=== PATIENT | female | born 1975 | race Caucasian/White ===

== ENCOUNTER 2017-12-23 11:15 | Emergency (ER) | payer MEDICARE, OTHER ==
[2017-12-23 11:34] VITALS: BP 130/80; PULSE 85; RESP 18; TEMP 98.5
--- NOTE | 2017-12-23 12:10 | XR ---
EXAMINATION TYPE: XR facial bones 3 views complete, XR foot complete 3 views LT, XR ankle complete 3 views LT DATE OF EXAM: 12/23/2017 COMPARISON: NONE HISTORY: 41-year-old female with fall, face first, laceration and pain to the nose. Additional ankle and foot pain after fall. FINDINGS: Facial bones: The orbits appear symmetrical. Nasal septum relatively midline. No depressed nasal bone fracture seen . Maxillary spine also appears intact. There is some asymmetric density overlying the left maxillary sinus. The remaining paranasal sinuses appear pneumatized. Patient is partially edentulous. Left ankle: Plate and screw fixation of the distal fibula appears uncomplicated. No acute fracture, subluxation, or dislocation seen. Mild degenerative spurring along the posterior tibiotalar joint. Subtalar joint is aligned. Left foot: There is a nondisplaced transverse fracture at the base of the fifth metatarsal. Fracture extends int o the middle third aspect of the TMT joint. No additional acute fracture or dislocation seen. There i s mild degenerative change at the first MTP joint and a type II accessory navicular noted. COMBINED IMPRESSION: 1. Facial bones: No depressed nasal bone fracture identified. Some density projecting over the left m axillary sinus suggests chronic sinus disease. 2. Ankle: Uncomplicated appearance to the previous plate and screw fixation of the distal fibula. No acute osseous abnormality seen. 3. Left foot: Nondisplaced transverse fracture base of the fifth metatarsal. First MTP joint OA.
--- NOTE | 2017-12-23 13:32 | ED ---
Fall HPI - General Chief Complaint: Fall Stated Complaint: FALL, LEFT FOOT INJURY, FACIAL INJURY Time Seen by Provider: 12/23/17 12:27 Source: patient, RN notes reviewed Mode of arrival: wheelchair - History of Present Illness Initial Comments: This is a 41-year-old female who presents to the emergency department with chief complaint of fall. Patient states that she was walking across the pavement at approximately 11 AM this morning. 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 Patient states that she hit her nose and injured her right knee as well as her left ankle and foot. Patient states that she has a small abrasion on her right knee but is not concerned about it as her knee is not painful. She does complain of left foot pain and states that she has had left ankle surgery performed by Dr. Grajeda in the past. She denies any other injuries or trauma. She denies any head or neck pain. Denies fever, chills, chest pain, shortness of breath, abdominal pain , nausea or vomiting, constipation or diarrhea, dysuria or hematuria, numbness or tingling, headache or vision changes. - Related Data Home Medications Medication Instructions Recorded Confirmed Levothyroxine Sodium [Synthroid] 125 mcg PO DAILY 03/23/16 12/23/17 valACYclovir HCL [Valacyclovir] 1,000 mg PO DAILY 12/23/17 12/23/17 Previous Rx's Medication Instructions Recorded Ibuprofen 600 mg PO Q6HR #20 tablet 12/23/17 Allergies Allergy/AdvReac Type Severity Reaction Status Date / Time prochlorperazine Allergy Dystonic Verified 12/23/17 12:26 [From Compazine] Reaction prochlorperazine edisylate Allergy Dystonic Verified 12/23/17 12:26 [From Compazine] Reaction prochlorperazine maleate Allergy Dystonic Verified 12/23/17 12:26 [From Compazine] Reaction Review of Systems ROS Statement: Those systems with pertinent positive or pertinent negative responses have been documented in the HPI. ROS Other: All systems not noted in ROS Statement are negative. Past Medical History Additional Past Medical History / Comment(s): Back pain, History of Any Multi-Drug Resistant Organisms: None Reported Past Surgical History: Orthopedic Surgery, Tonsillectomy, Tubal Ligation Additional Past Surgical History / Comment(s): Lumbar fusion L4-5; Bilateral ankle surgery Past Psychological History: Anxiety Smoking Status: Never smoker Past Alcohol Use History: None Reported Past Drug Use History: None Reported General Exam - General Exam Comments Initial Comments: General: Awake and alert, well-developed; in no apparent distress. HEENT: Head atraumatic, normocephalic. Small superficial abrasion at bridge of nose. Bleeding is controlled. No evidence of septal hematoma. Dried blood at bilateral nares. Pupils are equal, round and reactive to light. Extraocular movements intact. Oropharynx moist without erythema or exudate. Neck: Supple. Normal ROM. Cardiovascular: Regular rate and rhythm. No murmurs, rubs or gallops. Chest symmetrical. Respiratory: Lungs clear to auscultation bilaterally. No wheezes, rales or rhonchi. Normal respiratory effort with no use of accessory muscles. Musculoskeletal: Normal ROM and no tenderness of left ankle. Patient does have limited range of motion of her left toes due to pain. There is swelling and tenderness noted at the proximal fifth metatarsal. Sensation is intact. Pedal pulses are 2+ equal and palpable bilaterally. Skin: Banks, warm and dry without rashes. Superficial abrasion with controlled bleeding right knee. Neurological: Alert and oriented x3. CN II-XII grossly intact. Speech is fluent and answers are appropriate. No focal neuro deficits. Psychiatric: Normal mood and affect. No overt signs of depression or anxiety noted. Limitations: no limitations Course Vital Signs 12/23/17 11:31 Temperature 98.5 F Pulse Rate 85 Respiratory 18 Rate Blood Pressure 130/80 O2 Sat by Pulse 98 Oximetry Medical Decision Making - Medical Decision Making This is a 41-year-old female who presents to the emergency department with chief complaint of fall. Patient complained of falling face first. Facial x- rays revealed no evidence for acute nasal fractures. Patient also complained of left ankle and left foot pain. Left ankle x-ray revealed no acute abnormalities. However, left foot x-ray revealed a nondisplaced transverse fracture at the base of the fifth metatarsal. An Juan bandage and postop shoe were placed. Patient is to follow-up with orthopedics. She states that she would like to follow-up with Dr. Grajeda. Patient will receive a prescription for ibuprofen 600s. She declines any other pain medications. She is in no acute distress and will be discharged home at this time. All questions answered. - Radiology Data Radiology results: report reviewed X-ray facial bones impression: No depressed nasal bone fracture identified. Some density projecting over the left maxillary sinus suggest chronic sinus disease. X-ray left ankle impression: Uncomplicated appearance of the previous plate and screw fixation of the distal fibula. No acute osseous abnormality seen. X-ray left foot impression: Nondisplaced transverse fracture base of the fifth metatarsal. First MTP joint osteoarthritis. Disposition Clinical Impression: Nondisplaced fracture of fifth left metatarsal bone Disposition: HOME SELF-CARE Condition: Good Instructions: Foot Fracture in Adults (ED) Additional Instructions: Please follow-up with Dr. Grajeda, orthopedics within 1-2 days. Please limit weightbearing on the left foot. Please take medications as prescribed. Please follow up with primary care provider within 1-2 days. Return to emergency department if symptoms should worsen or any concerns arise. Prescriptions: Ibuprofen 600 mg PO Q6HR #20 tablet Referrals: Karine Parker MD [Primary Care Provider] - 1-2 days Cuauhtemoc Grajeda MD [STAFF PHYSICIAN] - 1-2 days Time of Disposition: 13:42
== END 2017-12-23 14:11 | disposition home or self-care (01) ==
LOC: EC 11:15
DX: S92.355A Nondisplaced fracture of fifth metatarsal bone, left foot, initial encounter for closed fracture (principal); S00.31XA Abrasion of nose, initial encounter; S80.211A Abrasion, right knee, initial encounter; M19.072 Primary osteoarthritis, left ankle and foot; J34.89 Other specified disorders of nose and nasal sinuses; Z79.899 Other long term (current) drug therapy; Z88.8 Allergy status to other drugs, medicaments and biological substances; Z98.890 Other specified postprocedural states; W01.198A Fall on same level from slipping, tripping and stumbling with subsequent striking against other object, initial encounter; Y93.01 Activity, walking, marching and hiking; Y92.480 Sidewalk as the place of occurrence of the external cause
CPT/HCPCS: 70150; 99283

== ENCOUNTER → 2018-01-18 | Outpatient (CLI) | payer MEDICARE, OTHER ==
[2018-01-18 09:42] LABS: Basophils % (A) 0 %; Eosinophils # (A) 0.1 k/uL (0-0.7); Eosinophils % (A) 2 %; HCT 38.7 % (34.0-46.0); HGB 13.2 gm/dL (11.4-16.0); Lymphocytes # (A) 1.4 k/uL (1.0-4.8); Lymphocytes % (A) 31 %; MCH 30.5 pg (25.0-35.0); MCV 89.7 fL (80.0-100.0); Monocytes # (A) 0.2 k/uL (0-1.0); Monocytes % (A) 5 %; Neutrophils # (A) 2.8 k/uL (1.3-7.7); Neutrophils % (A) 60 %; Platelet Count 223 k/uL (150-450); RBC 4.32 m/uL (3.80-5.40); RDW 12.4 % (11.5-15.5); WBC 4.6 k/uL (3.8-10.6)
[2018-01-18 10:12] LABS: Albumin 4.3 g/dL (3.5-5.0); Bilirubin, Delta 0.3 mg/dL (0.0-0.2); Bilirubin,Unconjugated 0.3 mg/dL (0.0-1.1); Total Bilirubin 0.6 mg/dL (0.2-1.3); Total Protein 7.5 g/dL (6.3-8.2)
[2018-01-20 15:25] LABS: HCV Quant Log 4.41 (<1.08)
== END | disposition home or self-care (01) ==
LOC: LABWHC1 09:15
PROVIDERS: ATTEND Physician Assistant
DX: B18.2 Chronic viral hepatitis C (principal)
CPT/HCPCS: 36415; 80076; 85025; 87522

== ENCOUNTER → 2018-05-15 | Outpatient (CLI) | payer MEDICARE, OTHER ==
[2018-05-15 14:31] LABS: Basophils % (A) 0 %; Eosinophils # (A) 0.1 k/uL (0-0.7); Eosinophils % (A) 1 %; HCT 39.3 % (34.0-46.0); HGB 13.3 gm/dL (11.4-16.0); Lymphocytes # (A) 1.9 k/uL (1.0-4.8); Lymphocytes % (A) 27 %; MCHC 33.9 g/dL (31.0-37.0); MCV 91.5 fL (80.0-100.0); Mean Platelet Volume 6.6; Monocytes # (A) 0.4 k/uL (0-1.0); Monocytes % (A) 5 %; Neutrophils # (A) 4.6 k/uL (1.3-7.7); Neutrophils % (A) 66 %; Platelet Count 278 k/uL (150-450); RBC 4.29 m/uL (3.80-5.40); RDW 12.6 % (11.5-15.5)
[2018-05-15 14:40] LABS: Albumin 4.2 g/dL (3.5-5.0); Bilirubin, Delta 0.3 mg/dL (0.0-0.2); Bilirubin,Unconjugated 0.2 mg/dL (0.0-1.1); Total Bilirubin 0.5 mg/dL (0.2-1.3); Total Protein 7.3 g/dL (6.3-8.2)
[2018-05-17 15:19] LABS: Hepatits C Virus RNA Not detected (Not detected); Hepatits C Virus RNA, Quant <12 IU/mL (<12); LOG HCV IU/mL <1.08 (<1.08)
== END | disposition home or self-care (01) ==
LOC: LABWHC1 13:47
PROVIDERS: ATTEND Physician Assistant
DX: B18.2 Chronic viral hepatitis C (principal)
CPT/HCPCS: 36415; 80076; 85025; 87522

== ENCOUNTER 2018-06-15 08:15 | Emergency (ER) | payer MEDICARE, OTHER ==
[2018-06-15 08:19] VITALS: BP 103/77; PULSE 76; RESP 16; TEMP 98.6
--- NOTE | 2018-06-15 08:31 | ED ---
ENT HPI - General Chief complaint: ENT Stated complaint: SORE THROAT Time Seen by Provider: 06/15/18 08:20 Source: patient, RN notes reviewed, old records reviewed Mode of arrival: ambulatory Limitations: no limitations - History of Present Illness Initial comments: 5 is a 42-year-old female presents emergency times a day chief complaint 2 days of sore throat. Patient reports she has a history of strep throat, she was told she was acutely her. Patient reports that she woke up with a very sore throat. Patient reports that she is exposed the public at all times. She works with homeless. Patient states that she's had no ALLERGIES who any antibiotics. Patient does report she's had a mild cough. Patient states that she has had no nasal drainage or ear congestion. Patient reports she also has a mild headache today.Patient denies any recent fever, chills, shortness of breath, chest pain, back pain, abdominal pain, nausea vomiting, numbness or tingling, dysuria or hematuria, constipation or diarrhea,or visual changes, or any other current symptoms - Related Data Home Medications Medication Instructions Recorded Confirmed Levothyroxine Sodium [Synthroid] 125 mcg PO DAILY 03/23/16 12/23/17 valACYclovir HCL [Valacyclovir] 1,000 mg PO DAILY 12/23/17 12/23/17 Multivitamins, Thera [Multivitamin 1 tab PO DAILY 06/15/18 06/15/18 (formulary)] Previous Rx's Medication Instructions Recorded Azithromycin [Zithromax Z-pack] 250 mg PO DIRECTED #6 tab 06/15/18 Allergies Allergy/AdvReac Type Severity Reaction Status Date / Time prochlorperazine Allergy Dystonic Verified 06/15/18 08:58 [From Compazine] Reaction prochlorperazine edisylate Allergy Dystonic Verified 06/15/18 08:58 [From Compazine] Reaction prochlorperazine maleate Allergy Dystonic Verified 06/15/18 08:58 [From Compazine] Reaction Review of Systems ROS Statement: Those systems with pertinent positive or pertinent negative responses have been documented in the HPI. ROS Other: All systems not noted in ROS Statement are negative. Past Medical History Additional Past Medical History / Comment(s): Back pain, History of Any Multi-Drug Resistant Organisms: None Reported Past Surgical History: Orthopedic Surgery, Tonsillectomy, Tubal Ligation Additional Past Surgical History / Comment(s): Lumbar fusion L4-5; Bilateral ankle surgery Past Psychological History: No Psychological Hx Reported Smoking Status: Never smoker Past Alcohol Use History: None Reported Past Drug Use History: None Reported General Exam - General Exam Comments Initial Comments: 42-year-old female. Alert and oriented. No significant distress. Limitations: no limitations General appearance: alert, in no apparent distress Head exam: Present: atraumatic, normocephalic, normal inspection Eye exam: Present: normal appearance, PERRL, EOMI. Absent: scleral icterus, conjunctival injection, periorbital swelling ENT exam: Present: mucous membranes moist. Absent: normal exam, normal oropharynx (Patient is red oropharynx.) Neck exam: Present: normal inspection, full ROM, lymphadenopathy (Patient has some tender anterior cervical lymphadenopathy.). Absent: tenderness, meningismus Respiratory exam: Present: normal lung sounds bilaterally. Absent: respiratory distress, wheezes, rales, rhonchi, stridor Cardiovascular Exam: Present: regular rate, normal rhythm, normal heart sounds. Absent: systolic murmur, diastolic murmur, rubs, gallop, clicks GI/Abdominal exam: Present: soft, normal bowel sounds. Absent: distended, tenderness, guarding, rebound, rigid Extremities exam: Present: normal inspection, full ROM, normal capillary refill. Absent: tenderness, pedal edema, joint swelling, calf tenderness Back exam: Present: normal inspection Neurological exam: Present: alert, oriented X3, CN II-XII intact Psychiatric exam: Present: normal affect, normal mood Skin exam: Present: warm, dry, intact, normal color. Absent: rash Course Vital Signs 06/15/18 08:15 Temperature 98.6 F Pulse Rate 76 Respiratory 16 Rate Blood Pressure 103/77 O2 Sat by Pulse 96 Oximetry Medical Decision Making - Medical Decision Making 42-year-old female presents with 1 day of sore throat. She does report a mild cough. Patient does have quite erythematous T oropharynx. No significant x- rays at this time. Did obtain a rapid strep. This was negative for strep. However with his presentation of the oropharynx we'll start the Patient on azithromycin. Given a Z-Jeffrey. I discussed the CT follow-up and culture pending. Patient agrees to plan will comply. Return parameters were discussed. - Lab Data Lab Results 06/15/18 Range/Units 08:30 Group A Strep Rapid Negative (Negative) Disposition Clinical Impression: Pharyngitis Disposition: HOME SELF-CARE Condition: Good Instructions: Pharyngitis (ED) Additional Instructions: Advised to rest, remain hydrated. Take [id number] medication just cough drops to help with the throat. Patient should finish the medication as prescribed. Also recommended picking up a decongestant medication such as Mucinex. Return to emergency department if any alarming signs or symptoms occur. Prescriptions: Azithromycin [Zithromax Z-pack] 250 mg PO DIRECTED #6 tab Is patient prescribed a controlled substance at d/c from ED?: No Referrals: Karine Parker MD [Primary Care Provider] - 1-2 days Time of Disposition: 09:02
== END 2018-06-15 09:11 | disposition home or self-care (01) ==
LOC: EC 08:15
DX: J02.9 Acute pharyngitis, unspecified (principal); Z90.89 Acquired absence of other organs; Z79.899 Other long term (current) drug therapy; Z88.8 Allergy status to other drugs, medicaments and biological substances
CPT/HCPCS: 87081; 87430; 99283

== ENCOUNTER → 2018-09-18 | Outpatient (CLI) | payer MEDICARE ==
[2018-09-18 17:08] LABS: Basophils % (A) 0 %; Eosinophils # (A) 0.1 k/uL (0-0.7); Eosinophils % (A) 1 %; HCT 38.6 % (34.0-46.0); Lymphocytes # (A) 2.6 k/uL (1.0-4.8); Lymphocytes % (A) 26 %; MCH 30.9 pg (25.0-35.0); MCHC 33.7 g/dL (31.0-37.0); MCV 91.7 fL (80.0-100.0); Mean Platelet Volume 6.7; Monocytes # (A) 0.5 k/uL (0-1.0); Monocytes % (A) 5 %; Neutrophils # (A) 6.6 k/uL (1.3-7.7); Neutrophils % (A) 67 %; Platelet Count 278 k/uL (150-450); RBC 4.21 m/uL (3.80-5.40); RDW 12.5 % (11.5-15.5); WBC 9.9 k/uL (3.8-10.6)
[2018-09-19 08:25] LABS: ALT 17 U/L (8-44); AST 28 U/L (13-35); Alkaline Phosphatase 71 U/L (41-126); Bilirubin, Conjugated <0.20 mg/dL (0.20-0.40); Globulin 2.5 g/dL (2.1-3.7); Total Bilirubin 0.3 mg/dL (0.3-1.2)
[2018-09-19 13:36] LABS: Hepatits C Virus RNA Not detected (Not detected); Hepatits C Virus RNA, Quant <12 IU/mL (<12); LOG HCV IU/mL <1.08 (<1.08)
== END | disposition home or self-care (01) ==
LOC: LABWHC1 16:25
PROVIDERS: ATTEND Physician Assistant
DX: B18.2 Chronic viral hepatitis C (principal)
CPT/HCPCS: 36415; 80076; 85025; 87522

== ENCOUNTER 2019-02-12 04:25 | Emergency (ER) | payer MEDICARE, OTHER ==
[2019-02-12 04:52] VITALS: TEMP 98.5
--- NOTE | 2019-02-12 05:57 | ED ---
ENT HPI - General Chief complaint: ENT Stated complaint: Sore throat Time Seen by Provider: 02/12/19 05:29 Source: patient Mode of arrival: ambulatory - History of Present Illness MD complaint: sore throat Onset/Timin -: days(s) Location: throat Severity: moderate Consistency: constant Improves with: none Worsens with: swallowing Associated Symptoms: cough - Related Data Home Medications Medication Instructions Recorded Confirmed Levothyroxine Sodium [Synthroid] 125 mcg PO DAILY 03/23/16 06/15/18 valACYclovir HCL [Valacyclovir] 1,000 mg PO DAILY 12/23/17 06/15/18 Multivitamins, Thera [Multivitamin 1 tab PO DAILY 06/15/18 06/15/18 (formulary)] Previous Rx's Medication Instructions Recorded Azithromycin [Zithromax Z-pack] 250 mg PO DIRECTED #6 tab 06/15/18 Benzonatate [Tessalon Perles] 100 mg PO TID PRN #30 capsule 02/12/19 Allergies Allergy/AdvReac Type Severity Reaction Status Date / Time prochlorperazine Allergy Dystonic Verified 02/12/19 04:52 [From Compazine] Reaction prochlorperazine edisylate Allergy Dystonic Verified 02/12/19 04:52 [From Compazine] Reaction prochlorperazine maleate Allergy Dystonic Verified 02/12/19 04:52 [From Compazine] Reaction Review of Systems ROS Statement: Those systems with pertinent positive or pertinent negative responses have been documented in the HPI. ROS Other: All systems not noted in ROS Statement are negative. Constitutional: Reports: fever. Denies: chills ENT: Reports: throat pain. Denies: ear pain Respiratory: Reports: cough Gastrointestinal: Denies: abdominal pain, nausea, vomiting Musculoskeletal: Denies: back pain Skin: Denies: rash Neurological: Denies: headache, weakness Past Medical History Additional Past Medical History / Comment(s): Back pain, History of Any Multi-Drug Resistant Organisms: None Reported Past Surgical History: Orthopedic Surgery, Tonsillectomy, Tubal Ligation Additional Past Surgical History / Comment(s): Lumbar fusion L4-5; Bilateral ankle surgery Past Psychological History: No Psychological Hx Reported Smoking Status: Never smoker Past Alcohol Use History: None Reported Past Drug Use History: None Reported General Exam General appearance: alert, in no apparent distress Head exam: Present: atraumatic, normocephalic Eye exam: Present: normal appearance. Absent: scleral icterus, conjunctival injection ENT exam: Present: mucous membranes moist, other (Cobblestoning of the pharynx. The uvula is midline without edema. No evidence of peritonsillar abscess.). Absent: normal oropharynx Neck exam: Present: normal inspection, full ROM. Absent: meningismus, lymphadenopathy Respiratory exam: Present: normal lung sounds bilaterally. Absent: respiratory distress, wheezes, rales, rhonchi, stridor Cardiovascular Exam: Present: regular rate, normal rhythm, normal heart sounds. Absent: systolic murmur, diastolic murmur, rubs, gallop Extremities exam: Present: normal inspection, normal capillary refill Skin exam: Present: warm, dry, intact, normal color. Absent: rash Course Vital Signs 02/12/19 02/12/19 04:49 07:48 Temperature 98.5 F 98.5 F Pulse Rate 79 78 Respiratory 16 18 Rate Blood Pressure 110/78 99/71 O2 Sat by Pulse 95 98 Oximetry Medical Decision Making - Lab Data Lab Results 02/12/19 Range/Units 05:28 Influenza Type A RNA Not Detected (Not Detectd) Influenza Type B (PCR) Not Detected (Not Detectd) Group A Strep Rapid Negative (Negative) Disposition Clinical Impression: Upper respiratory infection Disposition: HOME SELF-CARE Condition: Good Instructions (If sedation given, give patient instructions): Upper Respiratory Infection (ED) Prescriptions: Benzonatate [Tessalon Perles] 100 mg PO TID PRN #30 capsule PRN Reason: Cough Is patient prescribed a controlled substance at d/c from ED?: No Referrals: Karine Parker MD [Primary Care Provider] - 1-2 days
--- NOTE | 2019-02-12 06:06 | XR ---
EXAM: XR Chest, 2 Views CLINICAL HISTORY: ITS.REASON XR Reason: cough TECHNIQUE: Frontal and lateral views of the chest. COMPARISON: 03/21/13 chest x-ray FINDINGS: Lungs: No consolidation or mass. Pleural space: No effusion. Heart: No cardiomegaly. Mediastinum: Unremarkable. Bones/joints: No acute findings. IMPRESSION: No acute cardiopulmonary process.
[2019-02-12 07:51] VITALS: BP 99/71; PULSE 78; RESP 18
--- NOTE | 2019-02-12 08:11 | XR ---
Soft tissue neck HISTORY: Sore throat, fever and cough 2 views of the Prevertebral soft tissues are normal. Epiglottis shows a normal appearance. No radiopaque foreign bod y is evident. Airway is patent. IMPRESSION: Unremarkable soft tissue neck.
== END 2019-02-12 08:31 | disposition home or self-care (01) ==
LOC: EC 04:25
DX: J06.9 Acute upper respiratory infection, unspecified (principal); Z79.890 Hormone replacement therapy; Z88.8 Allergy status to other drugs, medicaments and biological substances
CPT/HCPCS: 70360; 71046; 87081; 87430; 87502; 99283

== ENCOUNTER → 2019-09-21 | Outpatient (CLI) | payer MEDICARE, OTHER ==
--- NOTE | 2019-09-21 13:30 | XR ---
EXAMINATION TYPE: XR shoulder complete RT DATE OF EXAM: 09/21/2019 CLINICAL HISTORY: pain TECHNIQUE: Three views of the right shoulder are obtained. COMPARISON: None FINDINGS: There is no acute fracture/dislocation evident. The acromioclavicular and glenohumeral david int spaces appear within normal limits. The visualized ribs are intact and unremarkable. IMPRESSION: 1. There is no acute fracture or dislocation. ICD 10 NO FRACTURE, INITIAL EVALUATION
== END | disposition home or self-care (01) ==
LOC: RADXRMAIN 12:54
PROVIDERS: ATTEND Internal Medicine
DX: M25.511 Pain in right shoulder (principal)

== ENCOUNTER → 2019-10-30 | Outpatient (CLI) | payer MEDICARE, OTHER ==
--- NOTE | 2019-11-02 10:47 | MM ---
Reason for exam: screening (asymptomatic). Last mammogram was performed 2 years and 3 months ago. History: Family history of breast cancer in maternal grandmother and breast cancer in 2 maternal aunts. Physical Findings: A clinical breast exam by your physician is recommended on an annual basis and results should be correlated with mammographic findings. MG 3D Screening Mammo W/Cad Bilateral CC and MLO view(s) were taken. Prior study comparison: July 28, 2017, bilateral MG 3d screening mammo w/cad. June 11, 2016, bilateral MG 3d screening mammo w/cad. There are scattered fibroglandular densities. No significant changes when compared with prior studies. ASSESSMENT: Negative, BI-RAD 1 RECOMMENDATION: Routine screening mammogram of both breasts in 1 year.
== END | disposition home or self-care (01) ==
LOC: RADMAMWWP 09:57
PROVIDERS: ATTEND Internal Medicine
DX: Z12.31 Encounter for screening mammogram for malignant neoplasm of breast (principal)
CPT/HCPCS: 77063; 77067

== ENCOUNTER → 2019-12-20 | Outpatient (CLI) | payer MEDICARE, OTHER ==
[2019-12-20 15:07] VITALS: BP 118/79; PULSE 99; RESP 16; TEMP 98.1; BMI 42.5
--- NOTE | 2019-12-20 16:41 | P.HPBAR ---
Bariatric H&P - History & Physicial H&P Date: 12/20/19 History & Physicial: Visit/CC: Initial Patient initial contact: Initial weight: 107.161 kg Initial weight in pounds: 236.25 Height: 5 ft 2.5 in Initial BMI: 42.5 Last weight: Current weight: 107.161 kg Current weight in pounds: 236.25 Current BMI: 42.5 [place] body weight (based on NIH guidelines): 51.029 kg Excess body weight loss: 0.0% The patient is a 43 year-old F who presents for Bariatric Assessment. Patient here to discuss surgical options for her morbid obesity. Patient tried various weight loss methods over the years without good success. States she usually fluctuates between 2:30 and 250. Current BMI 42.5. Patient complains of chronic back pain and chronic knee pain. Denies reflux. No dysphagia or DVT in the past. Only abdominal surgery tubal ligation. No known hernias. Patient interested in sleeve gastrectomy. Review of Systems The patient denies any acute changes in vision or hearing, no dysphagia or odynophagia, no chest pain or shortness of breath, no dysuria or hematuria, no headache, no runny nose, no rectal bleeding or melena, no unexplained weight loss Past Medical History Additional Past Medical History / Comment(s): Back pain, History of Any Multi-Drug Resistant Organisms: None Reported Past Surgical History: Orthopedic Surgery, Tonsillectomy, Tubal Ligation Additional Past Surgical History / Comment(s): Lumbar fusion L4-5; Bilateral ankle surgery Past Psychological History: No Psychological Hx Reported Smoking Status: Never smoker Past Alcohol Use History: None Reported Past Drug Use History: None Reported Surgical - Exam Vital Signs Temp Pulse Resp BP 98.1 F 99 16 118/79 12/20/19 15:03 12/20/19 15:03 12/20/19 15:03 12/20/19 15:03 Physical exam: General: Well-developed, well-nourished HEENT: Normocephalic, sclerae nonicteric Abdomen: Nontender, nondistended Extremities: No edema Neuro: Alert and oriented Bariatric Assessment & Plan (1) Morbid obesity Narrative/Plan: 43-year-old female with morbid obesity. Surgical options discussed in detail. Risks and benefits of both sleeve gastrectomy and gastric bypass reviewed. Patient remains interested in sleeve gastrectomy. We'll schedule for upper endoscopy. Tentatively plan sleeve gastrectomy to follow. Status: Acute Bariatric Checklist Checklist: Plan: Checklist: EGD: 1. Hiatal hernia: 2. H. Pylori: HgbA1c: Vitamin D: Smoking: Never smoker Primary care physician referral: Psychiatry clearance: Cardiology clearance: Sleep study: Diet journal: VTE risk score: VTE risk level: Rehab needs at discharge:
[2019-12-20 16:51] LABS: HCT 37.7 % (34.0-46.0); HGB 12.6 gm/dL (11.4-16.0); MCH 30.2 pg (25.0-35.0); MCHC 33.4 g/dL (31.0-37.0); MCV 90.5 fL (80.0-100.0); Platelet Count 310 k/uL (150-450); RBC 4.17 m/uL (3.80-5.40); RDW 12.8 % (11.5-15.5); WBC 10.2 k/uL (3.8-10.6)
[2019-12-21 02:11] LABS: African American GFR (CKD) 103.2 (60.0-200.0); Albumin 4.4 g/dL (3.80-4.90); Albumin/Globulin Ratio 1.91 (1.60-3.17); Anion Gap 5.6 mmol/L (4.00-12.00); Calcium 9.5 mg/dL (8.7-10.3); Carbon Dioxide 28.4 mmol/L (21.6-31.8); Globulin 2.3 g/dL (1.6-3.3); Potassium 4.3 mmol/L (3.5-5.5); Total Bilirubin 0.3 mg/dL (0.3-1.2); Total Protein 6.7 g/dL (6.2-8.2)
[2019-12-21 02:20] LABS: Folate, Serum 5.9 ng/mL
[2019-12-21 04:18] LABS: Hemoglobin A1C 5.3 % (4.0-6.0)
== END | disposition home or self-care (01) ==
LOC: BARWHC3 14:36
PROVIDERS: ATTEND Surgery
DX: E66.01 Morbid (severe) obesity due to excess calories (principal); Z68.41 Body mass index [BMI] 40.0-44.9, adult; E55.9 Vitamin D deficiency, unspecified; K90.89 Other intestinal malabsorption; Z98.51 Tubal ligation status
CPT/HCPCS: 84425; 80053; 82607; 82746; 83540; 85027; 82306; 83036; 93005; G0463; 99211

== ENCOUNTER → 2020-01-07 | Day surgery (SDC) | payer MEDICARE, OTHER ==
[2020-01-04 08:13] VITALS: BMI 46.0
[~2020-01-07] MED LIST: LACTATED RINGERS 1,000 ML IV SCH; LIDOCAINE 1% (10MG/ML) FOR IV START INTRADERMA PRN; MIDAZOLAM 2 MG/2 ML VIAL ONE; PROPOFOL 10 MG/ML 20 ML VIAL IV ONE; fentaNYL (PF) 50 MCG/ML 2 ML AMP ONE
[2020-01-07 10:42] VITALS: RESP 16; TEMP 97.2
--- NOTE | 2020-01-07 11:01 | P.GSHP ---
History of Present Illness H&P Date: 01/07/20 Chief Complaint: Peptic ulcer disease 44-year-old female here today for upper endoscopy. Patient is being evaluated for bariatric surgery. Has a history of previous ulcer disease. No heartburn. Past Medical History Past Medical History: Thyroid Disorder Additional Past Medical History / Comment(s): Back pain, History of Any Multi-Drug Resistant Organisms: None Reported Past Surgical History: Back Surgery, Orthopedic Surgery, Tonsillectomy, Tubal Ligation Additional Past Surgical History / Comment(s): Lumbar fusion L4-5; Bilateral ankle surgery Past Anesthesia/Blood Transfusion Reactions: Previous Problems w/ Anesthesia Additional Past Anesthesia/Blood Transfusion Reaction / Comment(s): PT STATES THAT SHE WOKE UP DURING HER TUBAL LIGATION Smoking Status: Never smoker - Past Family History Mother Family Medical History: No Reported History Medications and Allergies Home Medications Medication Instructions Recorded Confirmed Type Levothyroxine Sodium [Synthroid] 125 mcg PO DAILY 03/23/16 01/04/20 History valACYclovir HCL [Valacyclovir] 1,000 mg PO DAILY 12/23/17 01/04/20 History Phentermine HCl [Adipex-P] 37.5 mg PO DAILY 12/20/19 01/04/20 History Allergies Allergy/AdvReac Type Severity Reaction Status Date / Time No Known Allergies Allergy Verified 01/07/20 10:11 Surgical - Exam Vital Signs Temp Pulse Resp BP Pulse Ox 97.2 F L 90 16 144/80 95 01/07/20 10:22 01/07/20 10:22 01/07/20 10:22 01/07/20 10:22 01/07/20 10:22 Physical exam: General: Well-developed, well-nourished HEENT: Normocephalic, sclerae nonicteric Abdomen: Nontender, nondistended Extremities: No edema Neuro: Alert and oriented Assessment and Plan (1) Peptic ulcer Narrative/Plan: Will proceed with upper endoscopy Current Visit: Yes Status: Acute Code(s): K27.9 - PEPTIC ULC, SITE UNSP, UNSP AC OR CHR, W/O HEMOR OR PERF SNOMED Code(s): 37364974
--- NOTE | 2020-01-07 11:12 | P.PCN ---
Date of Procedure: 01/07/20 Procedure(s) Performed: Preoperative Dx: Peptic ulcer disease Postoperative Dx: Minimal gastritis Procedure: EGD with Bx Anesthesia: Sedation Endoscopist: Dr. Strong Specimens: Antrum Endoscopic Procedure: The patient was on the endoscopy table in the left decubitus position. The Olympus gastroscope was inserted into the oropharynx and passed under direct visualization to the region of the third portion of the duodenum. From that point the scope was slowly withdrawn inspecting all surfaces carefully. There were no neoplastic inflammatory or polypoid lesions throughout the duodenum. The pylorus was widely patent. The stomach was carefully inspected. There was minimal gastritis present. A biopsy of the antrum took place to rule out H. pylori. Retroflexion revealed a normal hiatus. The esophagus was then carefully examined. There were no neoplastic inflammatory or polypoid lesions throughout the visualized esophagus. The patient was then taken to the recovery room in stable condition per anesthesia guidelines. Recommendations: Await biopsy results. Follow-up bariatric clinic.
[2020-01-07 11:30] VITALS: BP 118/80; PULSE 80
== END ==
LOC: ORWHC2ENDO 09:57
PROVIDERS: ATTEND Surgery
DX: K29.50 Unspecified chronic gastritis without bleeding (principal); Z87.11 Personal history of peptic ulcer disease; E07.9 Disorder of thyroid, unspecified; Z88.8 Allergy status to other drugs, medicaments and biological substances; Z79.890 Hormone replacement therapy; Z79.899 Other long term (current) drug therapy; Z98.51 Tubal ligation status; Z90.89 Acquired absence of other organs; Z98.1 Arthrodesis status; Z98.890 Other specified postprocedural states
CPT/HCPCS: 81025; 88305; 43239; J2250; J3010; J2704

== ENCOUNTER → 2020-01-21 | Outpatient (CLI) | payer MEDICARE, OTHER ==
[2020-01-21 13:04] VITALS: BMI 42.9
== END | disposition home or self-care (01) ==
LOC: BARWHC3 09:01
PROVIDERS: ATTEND Surgery
DX: E66.01 Morbid (severe) obesity due to excess calories (principal); Z68.41 Body mass index [BMI] 40.0-44.9, adult
CPT/HCPCS: 97802

== ENCOUNTER → 2020-01-29 | Outpatient (CLI) | payer MEDICARE, OTHER | END | disposition home or self-care (01) | LOC: BARWHC3 13:00 | PROVIDERS: ATTEND Surgery | DX: Z53.9 Procedure and treatment not carried out, unspecified reason (principal) ==

== ENCOUNTER 2021-01-17 13:27 | Emergency (ER) | payer MEDICARE, OTHER ==
[2021-01-17 13:40] VITALS: BP 113/68; PULSE 89; RESP 18; TEMP 97.5
--- NOTE | 2021-01-17 14:12 | ED ---
General Adult HPI - General Chief complaint: Anxiety Stated complaint: Weakness Time Seen by Provider: 01/17/21 13:48 Source: patient, RN notes reviewed, old records reviewed Mode of arrival: ambulatory Limitations: no limitations - History of Present Illness Initial comments: 45-year-old female presented for evaluation after taking half of a Suboxone. Patient has previous history of substance abuse. She was going through her boyfriend's things and found the Suboxone. She does not know why she took it. This was not a suicide attempt. She states she has been stressed lately with some changes in both are living situation and family situation. She states she took Narcan in an attempt to reverse the effects of the Suboxone. She is remorseful. She denies any other complaints. - Related Data Home Medications Medication Instructions Recorded Confirmed Levothyroxine Sodium [Synthroid] 125 mcg PO DAILY 03/23/16 01/21/20 valACYclovir HCL [Valacyclovir] 1,000 mg PO DAILY 12/23/17 01/21/20 Phentermine HCl [Adipex-P] 37.5 mg PO DAILY 12/20/19 01/21/20 Biotin 5 mg PO DAILY 01/21/20 01/21/20 Ergocalciferol (Vitamin D2) 1,200 mcg PO DAILY 01/21/20 01/21/20 [Vitamin D2] Allergies Allergy/AdvReac Type Severity Reaction Status Date / Time No Known Allergies Allergy Verified 01/17/21 13:40 Review of Systems ROS Statement: Those systems with pertinent positive or pertinent negative responses have been documented in the HPI. ROS Other: All systems not noted in ROS Statement are negative. Past Medical History Past Medical History: Thyroid Disorder Additional Past Medical History / Comment(s): Back pain, History of Any Multi-Drug Resistant Organisms: None Reported Past Surgical History: Back Surgery, Orthopedic Surgery, Tonsillectomy, Tubal Ligation Additional Past Surgical History / Comment(s): Lumbar fusion L4-5; Bilateral ankle surgery Past Anesthesia/Blood Transfusion Reactions: Previous Problems w/ Anesthesia Additional Past Anesthesia/Blood Transfusion Reaction / Comment(s): PT STATES T HAT SHE WOKE UP DURING HER TUBAL LIGATION Past Psychological History: No Psychological Hx Reported Smoking Status: Never smoker Past Alcohol Use History: None Reported Past Drug Use History: None Reported, Opiates - Past Family History Mother Family Medical History: No Reported History General Exam Limitations: no limitations General appearance: alert, anxious Head exam: Present: atraumatic, normocephalic Eye exam: Present: normal appearance, PERRL ENT exam: Present: normal exam Neck exam: Present: normal inspection. Absent: tenderness, meningismus Respiratory exam: Present: normal lung sounds bilaterally. Absent: respiratory distress, wheezes Cardiovascular Exam: Present: regular rate, normal rhythm GI/Abdominal exam: Present: soft. Absent: distended, tenderness Extremities exam: Present: normal inspection, normal capillary refill. Absent: pedal edema, calf tenderness Neurological exam: Present: alert, oriented X3, CN II-XII intact. Absent: motor sensory deficit Psychiatric exam: Present: anxious. Absent: homicidal ideation, suicidal ideation Skin exam: Present: warm, dry, intact. Absent: cyanosis, diaphoretic Course Vital Signs 01/17/21 13:32 Temperature 97.5 F L Pulse Rate 89 Respiratory 18 Rate Blood Pressure 113/68 O2 Sat by Pulse 96 Oximetry Medical Decision Making - Medical Decision Making 45-year-old presenting for evaluation after taking half of Suboxone, 4 mg. Patient remorseful, this was not suicidal in nature. She does request referral for addiction. EPS nurse is able to provide these resources. Disposition Clinical Impression: Acute anxiety Disposition: HOME SELF-CARE Condition: Good Instructions (If sedation given, give patient instructions): Generalized Anxiety Disorder (ED) Additional Instructions: Please return with any worsening or changing symptoms. Is patient prescribed a controlled substance at d/c from ED?: No Referrals: Karine Parker MD [Primary Care Provider] - 1-2 days Time of Disposition: 14:12
== END 2021-01-17 14:47 | disposition home or self-care (01) ==
LOC: EC 13:27
DX: F41.9 Anxiety disorder, unspecified (principal)
CPT/HCPCS: 96361; 96374; 96375; 99283; 99284

== ENCOUNTER 2021-12-27 03:13 | Emergency (ER) | payer MEDICARE, OTHER ==
[2021-12-27 03:19] VITALS: BP 125/79; PULSE 111; RESP 18; TEMP 97.7
[2021-12-27] MEDS ORDERED: ERYTHROMYCIN 5 MG/GM OPHTH OINT 1 GM TUBE LEFT EYE STA (04:21)
--- NOTE | 2021-12-27 04:27 | ED ---
Eye Problem HPI - General Chief complaint: Eye Problems Stated complaint: Eye Problems Source: patient Mode of arrival: ambulatory Limitations: no limitations - History of Present Illness Initial comments: 45-year-old female presents emergency Department with redness to the left eye. States that her symptoms started earlier in the day. She has a lump noted to the left upper lid with surrounding swelling to the left eye. States the eyelid is pressing on her eye and causing her to have blurred vision. She denies any pain with eye movement. No fevers or chills. No pustular drainage. No sick contacts with similar symptoms. No trauma to the eye. No other alleviating, precipitating or modifying factors - Related Data Home Medications Medication Instructions Recorded Confirmed Levothyroxine Sodium [Synthroid] 125 mcg PO DAILY 03/23/16 01/21/20 valACYclovir HCL [Valacyclovir] 1,000 mg PO DAILY 12/23/17 01/21/20 Phentermine HCl [Adipex-P] 37.5 mg PO DAILY 12/20/19 01/21/20 Biotin 5 mg PO DAILY 01/21/20 01/21/20 Ergocalciferol (Vitamin D2) 1,200 mcg PO DAILY 01/21/20 01/21/20 [Vitamin D2] Previous Rx's Medication Instructions Recorded Erythromycin Ophth Oint [Romycin 1 applic LEFT EYE QID #3.5 gram 12/27/21 Ophth Oint] Allergies Allergy/AdvReac Type Severity Reaction Status Date / Time No Known Allergies Allergy Verified 12/28/21 10:13 Review of Systems ROS Statement: Those systems with pertinent positive or pertinent negative responses have been documented in the HPI. ROS Other: All systems not noted in ROS Statement are negative. Past Medical History Past Medical History: Thyroid Disorder History of Any Multi-Drug Resistant Organisms: None Reported Past Surgical History: Back Surgery, Orthopedic Surgery, Tonsillectomy, Tubal Ligation Past Psychological History: No Psychological Hx Reported Smoking Status: Never smoker Past Alcohol Use History: None Reported Past Drug Use History: None Reported - Past Family History Mother Family Medical History: No Reported History General Exam Limitations: no limitations Head exam: Present: atraumatic, normocephalic, normal inspection Eye exam: Present: PERRL, EOMI, other (5 mm nodule left upper lid. no drainage. entired upper eyelid is erythematous) ENT exam: Present: normal exam, mucous membranes moist Neck exam: Present: normal inspection. Absent: tenderness, meningismus, lymphadenopathy Course Vital Signs 12/27/21 03:15 Temperature 97.7 F Pulse Rate 111 H Respiratory 18 Rate Blood Pressure 125/79 O2 Sat by Pulse 100 Oximetry Medical Decision Making - Medical Decision Making On arrival patient is placed into room 17. A thorough history and physical exam was performed. Patient does appear to have a stye of the left upper eyelid with associated blepharitis. Patient will be started on erythromycin ointment. Instructed to place warm compresses to the site 4 times a day. Return to the emergency room for any new or worsening symptoms. Follow up with ophthalmology if symptoms persist. Patient agreed to this and she is discharged home in stable condition Disposition Clinical Impression: Blepharitis Disposition: HOME SELF-CARE Condition: Stable Instructions (If sedation given, give patient instructions): Blepharitis (ED) Additional Instructions: Avoid eye makeup. Place warm compresses to the site for 15 minutes, [address] the erythromycin to the eye 4 times daily. Return for any new or worsening symptoms Prescriptions: Erythromycin Ophth Oint [Romycin Ophth Oint] 1 applic LEFT EYE QID #3.5 gram Is patient prescribed a controlled substance at d/c from ED?: No Referrals: Karine Parker MD [Primary Care Provider] - 1-2 days Time of Disposition: 04:27
== END 2021-12-27 05:13 | disposition home or self-care (01) ==
LOC: MERGE 03:13 → EC 03:13
DX: H01.004 Unspecified blepharitis left upper eyelid (principal); E07.9 Disorder of thyroid, unspecified; Z79.890 Hormone replacement therapy
CPT/HCPCS: 99283

== ENCOUNTER → 2022-08-17 | Outpatient (CLI) | payer MEDICARE, OTHER ==
--- NOTE | 2022-08-18 20:08 | MM ---
Reason for Exam: Screening (asymptomatic). Last mammogram was performed 2 year(s) and 10 month(s) ago. Patient History: Menarche at age 14. First Full-Term at age 19. Premenopausal. Maternal grandmother had breast cancer. Maternal aunt had breast cancer. Maternal aunt had breast cancer. Risk Values: Jaci 5 year model risk: 0.7%. NCI Lifetime model risk: 7.6%. Prior Study Comparison: 06/11/2016 Bilateral Screening Mammogram, [facility]. 07/28/2017 Bilateral Screening Mammogram, [facility]. 10/30/2019 Bilateral Screening Mammogram, [facility]. Tissue Density: There are scattered fibroglandular densities. Findings: Analyzed By CAD. There is no suspicious group of microcalcifications or new suspicious mass in either breast. Overall Assessment: Negative, BI-RAD 1 Management: Screening Mammogram of both breasts in 1 year. 1. Patient should continue monthly self breast exams. 2. A clinical breast exam by your physician is recommended on an annual basis. 3. This exam should not preclude additional follow-up of suspicious palpable abnormalities. Electronically signed and approved by: Min Page M.D. Radiologist
== END ==
LOC: RADMAMWWP 13:26
PROVIDERS: ATTEND Internal Medicine
DX: Z12.31 Encounter for screening mammogram for malignant neoplasm of breast (principal)
CPT/HCPCS: 77063; 77067

== ENCOUNTER → 2023-11-03 | Outpatient (CLI) | payer MEDICARE, OTHER ==
--- NOTE | 2023-11-07 15:44 | MM ---
Reason for Exam: Screening (asymptomatic). Last mammogram was performed 1 year(s) and 2 month(s) ago. Patient History: Menarche at age 14. First Full-Term at age 19. Premenopausal. Maternal grandmother had breast cancer. Maternal aunt had breast cancer. Maternal aunt had breast cancer. Risk Values: Jaci 5 year model risk: 0.8%. NCI Lifetime model risk: 7.5%. Prior Study Comparison: 07/28/2017 Bilateral Screening Mammogram, [facility]. 10/30/2019 Bilateral Screening Mammogram, [facility]. 08/17/2022 Bilateral MG 3D screening mammo w/cad, [facility]. Tissue Density: There are scattered fibroglandular densities. Findings: Analyzed By CAD. There is no suspicious group of microcalcifications or new suspicious mass in either breast. Overall Assessment: Negative, BI-RAD 1 Management: Screening Mammogram of both breasts in 1 year. . Patient should continue monthly self-breast exams. A clinical breast exam by your physician is recommended on an annual basis. This exam should not preclude additional follow-up of suspicious palpable abnormalities. Note on Jaci scores and lifetime risk: 1. A Jaci score greater than 3% is considered moderate risk. If this is the case, consider specialist referral to assess eligibility for a risk reducing agent. 2. If overall lifetime risk for the development of breast cancer is 20% or higher, the patient may qualify for future screening with alternating mammogram and breast MRI. Electronically signed and approved by: Min Page M.D. Radiologist
== END | disposition home or self-care (01) ==
LOC: RADMAMWWP 14:36
PROVIDERS: ATTEND Internal Medicine
DX: Z12.31 Encounter for screening mammogram for malignant neoplasm of breast (principal); Z80.3 Family history of malignant neoplasm of breast
CPT/HCPCS: 77063; 77067

== ENCOUNTER 2024-09-02 09:32 | Emergency (ER) | payer OTHER ==
[2024-09-02] MEDS: ONDANSETRON ODT 4 MG TAB PO STA (10:43)
[2024-09-02] MEDS: HYDROmorphone 0.5 MG/0.5 ML SYRINGE IVP STA (10:50)
[2024-09-02] MEDS: HYDROmorphone 0.5 MG/0.5 ML SYRINGE IM STA (10:51)
--- NOTE | 2024-09-02 11:14 | ED ---
ENT HPI - General Chief complaint: Dental/Oral Stated complaint: Oral Pain Time Seen by Provider: 09/02/24 11:14 Source: patient Mode of arrival: ambulatory Limitations: no limitations - History of Present Illness Initial comments: 48-year-old female presented to the ER with a chief complaint of dental pain. Patient was seen at [facility] on Tuesday and had lower teeth pulled. She is currently being fitted for dentures. Patient states she has been having pain since which was controlled by [id number] ibuprofen and Tylenol but for the past 12 hours she has had an increase in pain that is not controlled with [id number] medications. Patient denies any fevers, chills, difficulty swallowing or breathing. Patient is concerned she may have a dry socket. Patient denies any drainage or bleeding. No other complaints.. - Related Data Home Medications Medication Instructions Recorded Confirmed Levothyroxine Sodium [Synthroid] 125 mcg PO DAILY 03/23/16 01/21/20 valACYclovir HCL [Valacyclovir] 1,000 mg PO DAILY 12/23/17 01/21/20 Phentermine HCl [Adipex-P] 37.5 mg PO DAILY 12/20/19 01/21/20 Biotin 5 mg PO DAILY 01/21/20 01/21/20 Ergocalciferol (Vitamin D2) 1,200 mcg PO DAILY 01/21/20 01/21/20 [Vitamin D2] Previous Rx's Medication Instructions Recorded Erythromycin Ophth Oint [Romycin 1 applic LEFT EYE QID #3.5 gram 12/27/21 Ophth Oint] Amoxic-Pot Clav 875-125Mg 1 tab PO Q12HR #20 tab 09/02/24 [Augmentin 875-125] Fluconazole 150 mg PO ONCE #1 tab 09/02/24 HYDROcodone/APAP 5-325MG [Rye 5] 1 each PO Q6HR PRN #12 tab 09/02/24 Allergies Allergy/AdvReac Type Severity Reaction Status Date / Time No Known Allergies Allergy Verified 09/02/24 09:38 Review of Systems ROS Statement: Those systems with pertinent positive or pertinent negative responses have been documented in the HPI. ROS Other: All systems not noted in ROS Statement are negative. Past Medical History Past Medical History: Thyroid Disorder Additional Past Medical History / Comment(s): Back pain, History of Any Multi-Drug Resistant Organisms: None Reported Past Surgical History: Back Surgery, Orthopedic Surgery, Tonsillectomy, Tubal Ligation Additional Past Surgical History / Comment(s): Lumbar fusion L4-5; Bilateral ankle surgery Past Anesthesia/Blood Transfusion Reactions: Previous Problems w/ Anesthesia Additional Past Anesthesia/Blood Transfusion Reaction / Comment(s): PT STATES THAT SHE WOKE UP DURING HER TUBAL LIGATION Past Psychological History: No Psychological Hx Reported Smoking Status: Never smoker Past Alcohol Use History: None Reported Past Drug Use History: None Reported, Opiates - Past Family History Mother Family Medical History: No Reported History General Exam Limitations: no limitations General appearance: alert, in no apparent distress ENT exam: Present: mucous membranes moist (No teeth present. There is edema and white material present to lower jaw. Extremely tender to touch. No drainable abscess. Oropharynx patent. No pharynx or tongue swelling.) Neck exam: Present: normal inspection. Absent: tenderness, meningismus, lymphad enopathy Respiratory exam: Present: normal lung sounds bilaterally. Absent: respiratory distress, wheezes, rales, rhonchi, stridor Cardiovascular Exam: Present: regular rate, normal rhythm, normal heart sounds. Absent: systolic murmur, diastolic murmur, rubs, gallop, clicks Neurological exam: Present: alert, oriented X3, CN II-XII intact Skin exam: Present: warm, dry, intact, normal color. Absent: rash Course Vital Signs 09/02/24 09/02/24 09:35 13:50 Temperature 97.6 F 98.1 F Pulse Rate 92 71 Respiratory 16 18 Rate Blood Pressure 129/88 106/68 O2 Sat by Pulse 99 99 Oximetry Procedures - Nerve Block Consent Obtained: verbal consent Local Anesthetic Used: Lidocaine 1% Amount of anesthesia used: 10 Side: left, right Intraoral Nerve Block: inferior alveolar, mental Procedure Successful: Yes Patient Tolerated Procedure: well Medical Decision Making - Medical Decision Making Was pt. sent in by a medical professional or institution (, PA, VARNISHING UNIT OPERATOR, urgent care, hospital, or fpc...) When possible be specific @ -No Did you speak to anyone other than the patient for history (EMS, parent, family, police, friend...)? What history was obtained from this source @ -, at bedside, aiding in HPI and past medical history. Did you review nursing and triage notes (agree or disagree)? Why? @ -I reviewed and agree with nursing and triage notes Were old charts reviewed (outside hosp., previous admission, EMS record, old EKG, old radiological studies, urgent care reports/EKG's, fpc records)? Report findings @ -No old charts were reviewed Differential Diagnosis (chest pain, altered mental status, abdominal pain women, abdominal pain men, vaginal bleeding, weakness, fever, dyspnea, syncope, headache, dizziness, GI bleed, back pain, seizure, CVA, palpatations, mental health, musculoskeletal)? @ -Dental infection, fractured tooth, pulpitis, dental abscess, Michele angina... This list is not meant to be all-inclusive EKG interpreted by me (3pts min.). @ -None done X-rays interpreted by me (1pt min.). @ -None done CT interpreted by me (1pt min.). @ -None done U/S interpreted by me (1pt. min.). @ -None done What testing was considered but not performed or refused? (CT, X-rays, U/S, labs)? Why? @ -None What meds were considered but not given or refused? Why? @ -None Did you discuss the management of the patient with other professionals (professionals i.e. , PA, VARNISHING UNIT OPERATOR, lab, RT, psych nurse, social worker aide, inclusion paraeducator, teacher, training and development officer, welfare case worker)? Give summary @ -No Was smoking cessation discussed for >3mins.? @ -No Was critical care preformed (if so, how long)? @ -No Were there social determinants of health that impacted care today? How? (Homelessness, low income, unemployed, alcoholism, drug addiction, transportation, low edu. Level, literacy, decrease access to med. care, retirement, rehab)? @ -No Was there de-escalation of care discussed even if they declined (Discuss DNR or withdrawal of care, Hospice)? DNR status @ -No What co-morbidities impacted this encounter? (DM, HTN, Smoking, COPD, CAD, Cancer, CVA, ARF, Chemo, Hep., AIDS, mental health diagnosis, sleep apnea, morbid obesity)? @ -None Was patient admitted / discharged? Hospital course, mention meds given and route, prescriptions, significant lab abnormalities, going to OR and other pertinent info. @ -Discharge. 48-year-old female presenting to the ER status post tooth extraction with dental pain. History and physical exam completed. Vitals stable. Patient no signs of acute distress nontoxic-appearing. Patient appears well-developed and well-nourished. Exam remarkable for erythematous edematous lower gums no drainable abscess present. White material present in tooth socket. Patient will be started on Augmentin for infection prophylaxis. Dental block performed to lower jaw for pain control along with IM Dilaudid. Patient reports great improvement of pain. I advised her to follow-up Tuesday with dentist for further evaluation. Rye prescribed for outpatient pain management I also advised [id number] ibuprofen and Tylenol. Fluconazole prescribed as patient reports yeast infection with antibiotic use. Strict return parameters discussed. Patient discharged in stable condition with follow-up to dentist, referral given. Patient verbally expressed understanding and agreement with care plan. Case discussed with ED attending, Dr. Hummel. Undiagnosed new problem with uncertain prognosis? @ -No Drug Therapy requiring intensive monitoring for toxicity (Heparin, Nitro, Insuli n, Cardizem)? @ -No Were any procedures done? @ -Yes, nerve block Diagnosis/symptom? @ -Dental pain Acute, or Chronic, or Acute on Chronic? @ -Acute Uncomplicated (without systemic symptoms) or Complicated (systemic symptoms)? @ -Uncomplicated Side effects of treatment? @ -No Exacerbation, Progression, or Severe Exacerbation? @ -No Poses a threat to life or bodily function? How? (Chest pain, [place], NM, pneumonia, PE, COPD, DKA, ARF, appy, cholecystitis, CVA, Diverticulitis, Homicidal, Suicidal, threat to staff... and all critical care pts) @ -No Disposition Clinical Impression: Pain, dental Disposition: HOME SELF-CARE Condition: Stable Instructions (If sedation given, give patient instructions): Toothache (ED) Additional Instructions: Continue taking [id number] ibuprofen and Tylenol for pain control. Complete full course of Augmentin. Follow-up with dentistry soon as possible. Return to the ER for any new or worsening concerns. Prescriptions: Amoxic-Pot Clav 875-125Mg [Augmentin 875-125] 1 tab PO Q12HR #20 tab Fluconazole 150 mg PO ONCE #1 tab HYDROcodone/APAP 5-325MG [Rye 5] 1 each PO Q6HR PRN #12 tab PRN Reason: Pain Is patient prescribed a controlled substance at d/c from ED?: Yes When asked, does pt state using other controlled substances?: No If prescribed controlled substance>3 days was MAPS reviewed?: Prescribed <3 Days If opioid is for acute pain is fill amount 7 days or less?: Yes If Rx opioid, was Start Talking consent form obtained?: Yes Referrals: Karine Parker MD [Primary Care Provider] - 1-2 days Toni Siddiqui DDS [STAFF PHYSICIAN] - 1-2 days Izabella Hebert DDS [STAFF PHYSICIAN] - 1-2 days Time of Disposition: 13:14
[2024-09-02] MEDS: HYDROmorphone 1 MG/ML 1 ML SYRINGE IM STA (11:56)
[2024-09-02] MEDS: AMOXICILLIN 500 MG CAP PO STA (11:57)
[2024-09-02] MEDS: LIDOCAINE 1% INJ 10MG/ML (20 ML MDV) SQ ONE (12:00)
[2024-09-02] MEDS: BUPIVACAINE (PF) 0.25% 30 ML VIAL SQ STA (12:04)
[2024-09-02 13:52] VITALS: BP 106/68; PULSE 71; RESP 18; TEMP 98.1
== END 2024-09-02 13:52 | disposition home or self-care (01) ==
LOC: EC 09:32
DX: K08.89 Other specified disorders of teeth and supporting structures (principal)
CPT/HCPCS: 64400; 96372; 99282

== ENCOUNTER 2024-11-08 19:09 | Emergency (ER) | payer OTHER ==
[2024-11-08 19:28] VITALS: RESP 18; TEMP 98.7
--- NOTE | 2024-11-08 19:55 | ED ---
URI HPI - General Chief Complaint: Upper Respiratory Infection Stated Complaint: covid, abn labs Time Seen by Provider: 11/08/24 19:54 Source: patient, RN notes reviewed Mode of arrival: ambulatory Limitations: no limitations - History of Present Illness Initial Comments: 48-year-old female presented to the ER for evaluation of cough and congestion. Patient states for the past couple days she has had a sore throat, runny nose and cough. Patient took an at home COVID test which was positive. Patient was seen at urgent care and was noted to have low oxygen level at 88% which was taken from her wrist which prompted her to be seen at the ER. Patient denies shortness of breath or difficulty breathing. Patient denies any history of COPD, asthma. She does states she takes prep as her has HIV. Patient has been taking Tylenol for symptom control. Patient denies any abdominal pain, constipation/diarrhea, urinary complaints, peripheral edema no other complaints. - Related Data Home Medications Medication Instructions Recorded Confirmed Levothyroxine Sodium [Synthroid] 125 mcg PO DAILY 03/23/16 01/21/20 valACYclovir HCL [Valacyclovir] 1,000 mg PO DAILY 12/23/17 01/21/20 Phentermine HCl [Adipex-P] 37.5 mg PO DAILY 12/20/19 01/21/20 Biotin 5 mg PO DAILY 01/21/20 01/21/20 Ergocalciferol (Vitamin D2) 1,200 mcg PO DAILY 01/21/20 01/21/20 [Vitamin D2] Previous Rx's Medication Instructions Recorded Erythromycin Ophth Oint [Romycin 1 applic LEFT EYE QID #3.5 gram 12/27/21 Ophth Oint] Amoxic-Pot Clav 875-125Mg 1 tab PO Q12HR #20 tab 09/02/24 [Augmentin 875-125] Fluconazole 150 mg PO ONCE #1 tab 09/02/24 HYDROcodone/APAP 5-325MG [[place] 5] 1 each PO Q6HR PRN #12 tab 09/02/24 Allergies Allergy/AdvReac Type Severity Reaction Status Date / Time No Known Allergies Allergy Verified 11/08/24 19:41 Review of Systems ROS Statement: Those systems with pertinent positive or pertinent negative responses have been documented in the HPI. ROS Other: All systems not noted in ROS Statement are negative. Past Medical History Past Medical History: Thyroid Disorder Additional Past Medical History / Comment(s): Back pain, History of Any Multi-Drug Resistant Organisms: None Reported Past Surgical History: Back Surgery, Orthopedic Surgery, Tonsillectomy, Tubal Ligation Additional Past Surgical History / Comment(s): Lumbar fusion L4-5; Bilateral ankle surgery Past Anesthesia/Blood Transfusion Reactions: Previous Problems w/ Anesthesia Additional Past Anesthesia/Blood Transfusion Reaction / Comment(s): PT STATES THAT SHE WOKE UP DURING HER TUBAL LIGATION Past Psychological History: No Psychological Hx Reported Smoking Status: Never smoker Past Alcohol Use History: None Reported Past Drug Use History: None Reported, Opiates - Past Family History Mother Family Medical History: No Reported History General Exam - General Exam Comments Initial Comments: Visual Physical Exam Vital signs reviewed General: Well-appearing, nontoxic, no acute distress. Head: Normocephalic, atraumatic Eyes: PERRLA, EOMI ENT: Airway patent Chest: Nonlabored breathing Skin: No visual rash, normal skin tone Neuro: Alert and oriented 3 Musculoskeletal: No gross abnormalities Limitations: no limitations General appearance: alert, in no apparent distress ENT exam: Present: normal exam, normal oropharynx, mucous membranes moist, TM's normal bilaterally Neck exam: Present: normal inspection. Absent: tenderness, meningismus, lymphadenopathy Respiratory exam: Present: normal lung sounds bilaterally. Absent: respiratory distress, wheezes, rales, rhonchi, stridor Cardiovascular Exam: Present: regular rate, normal rhythm, normal heart sounds. Absent: systolic murmur, diastolic murmur, rubs, gallop, clicks GI/Abdominal exam: Present: soft, normal bowel sounds. Absent: distended, tenderness, guarding, rebound, rigid Extremities exam: Present: normal inspection, full ROM, normal capillary refill. Absent: tenderness, pedal edema, joint swelling, calf tenderness Neurological exam: Present: alert, oriented X3, CN II-XII intact Skin exam: Present: warm, dry, intact, normal color. Absent: rash Course Vital Signs 11/08/24 11/08/24 19:25 21:26 Temperature 98.7 F Pulse Rate 100 99 Respiratory 18 18 Rate Blood Pressure 129/83 126/81 O2 Sat by Pulse 99 99 Oximetry Medical Decision Making - Medical Decision Making I performed the quick note portion of this chart. Electronically signed by Vasquez Shaw PA-C Was pt. sent in by a medical professional or institution ([facility], PRODUCT DEVELOPMENT CONSULTANT, urgent care, hospital, or senior care...) When possible be specific @ -No Did you speak to anyone other than the patient for history (EMS, parent, family, police, friend...)? What history was obtained from this source @ -No Did you review nursing and triage notes (agree or disagree)? Why? @ -I reviewed and agree with nursing and triage notes Were old charts reviewed (outside hosp., previous admission, EMS record, old EKG, old radiological studies, urgent care reports/EKG's, senior care records)? Report findings @ -No old charts were reviewed Differential Diagnosis (chest pain, altered mental status, abdominal pain women, abdominal pain men, vaginal bleeding, weakness, fever, dyspnea, syncope, headache, dizziness, GI bleed, back pain, seizure, CVA, palpatations, mental health, musculoskeletal)? @ -COVID, RSV, influenza, viral sinusitis, pneumonia, strep pharyngitis, this list is not meant to be all-inclusive EKG interpreted by me (3pts min.). @ -None done X-rays interpreted by me (1pt min.). @ -CXR interpreted me negative for focal consolidations, pneumothorax or pleural effusions. CT interpreted by me (1pt min.). @ -None done U/S interpreted by me (1pt. min.). @ -None done What testing was considered but not performed or refused? (CT, X-rays, U/S, labs)? Why? @ -None What meds were considered but not given or refused? Why? @ -None Did you discuss the management of the patient with other professionals (professionals i.e. [facility], PRODUCT DEVELOPMENT CONSULTANT, lab, RT, psych nurse, socially responsible investment adviser, computer lab para professional, teacher, vice squad police officer, counseling case manager)? Give summary @ -No Was smoking cessation discussed for >3mins.? @ -No Was critical care preformed (if so, how long)? @ -No Were there social determinants of health that impacted care today? How? (Homelessness, low income, unemployed, alcoholism, drug addiction, transportation, low edu. Level, literacy, decrease access to med. care, nursing home, rehab)? @ -No Was there de-escalation of care discussed even if they declined (Discuss DNR or withdrawal of care, Hospice)? DNR status @ -No What co-morbidities impacted this encounter? (DM, HTN, Smoking, COPD, CAD, Cancer, CVA, ARF, Chemo, Hep., AIDS, mental health diagnosis, sleep apnea, morbid obesity)? @ -None Was patient admitted / discharged? Hospital course, mention meds given and route, prescriptions, significant lab abnormalities, going to OR and other pertinent info. @ -Discharge. 48-year-old female presented to the ER for evaluation of sore throat, cough and congestion. Patient originally seen as a quick note by myself where viral swabs and chest x-ray were ordered. Upon rooming and examination, vital signs stable. Patient in no signs of acute distress. Exam benign. Viral swabs negative. Chest x-ray negative. Symptoms believed to be viral in nature. I advised [id number] Tylenol for symptom control. I also advised patient to follow-up closely with PCP. Patient is stable for discharge. Strict return parameters discussed. Patient discharged in stable condition with follow-up to PCP. Patient verbally expressed understanding and agreement with care plan. Case discussed with ED attending, Dr. Eng. Undiagnosed new problem with uncertain prognosis? @ -No Drug Therapy requiring intensive monitoring for toxicity (Heparin, Nitro, Insulin, Cardizem)? @ -No Were any procedures done? @ -No Diagnosis/symptom? @ -Acute viral sinusitis/viral illness Acute, or Chronic, or Acute on Chronic? @ -Acute Uncomplicated (without systemic symptoms) or Complicated (systemic symptoms)? @ -Uncomplicated Side effects of treatment? @ -No Exacerbation, Progression, or Severe Exacerbation? @ -No Poses a threat to life or bodily function? How? (Chest pain, [place], [place], pneumonia, PE, COPD, DKA, ARF, appy, cholecystitis, CVA, Diverticulitis, Homicidal, Suicidal, threat to staff... and all critical care pts) @ -No - Lab Data Lab Results 11/08/24 Range/Units 19:28 Influenza Type A (PCR) Not Detected (Not Detectd) Influenza Type B (PCR) Not Detected (Not Detectd) RSV (PCR) Not Detected (Not Detectd) SARS-CoV-2 (PCR) Not Detected (Not Detectd) - Radiology Data Radiology results: report reviewed, image reviewed Disposition Clinical Impression: Acute viral sinusitis Disposition: HOME SELF-CARE Condition: Stable Additional Instructions: Continue with [id number] Tylenol for symptom control. We also recommend nasal lavage. Follow-up with PCP. Return to the ER for any new or worsening concerns. Is patient prescribed a controlled substance at d/c from ED?: No Referrals: Karine Parker MD [Primary Care Provider] - 1-2 days Time of Disposition: 21:23
--- NOTE | 2024-11-08 20:27 | XR ---
EXAMINATION TYPE: XR chest 2V DATE OF EXAM: 11/08/2024 8:12 PM COMPARISON: Chest radiographs from 02/12/2019 CLINICAL INDICATION: Female, 48 years old with history of cough; [facility] TECHNIQUE: XR chest 2V Frontal and lateral views of the chest. FINDINGS: Lungs/Pleura: There is no evidence of pleural effusion, focal consolidation, or pneumothorax. Pulmonary vascularity: Unremarkable. Heart/mediastinum: Cardiomediastinal silhouette is unremarkable. Musculoskeletal: No acute osseous pathology. Other findings: None Lines/Tubes: IMPRESSION: No acute cardiopulmonary disease/process. [facility], , 11/08/2024 8:24 PM
[2024-11-08 21:26] VITALS: BP 126/81; PULSE 99
== END 2024-11-08 21:26 | disposition home or self-care (01) ==
LOC: EC 19:09
DX: J01.90 Acute sinusitis, unspecified (principal); B97.89 Other viral agents as the cause of diseases classified elsewhere
CPT/HCPCS: 71046; 87636; 99283

== ENCOUNTER → 2024-11-13 | Outpatient (CLI) | payer OTHER ==
--- NOTE | 2024-11-14 07:15 | MM ---
Reason for Exam: Screening (asymptomatic). Last mammogram was performed 1 year(s) and 1 month(s) ago. Patient History: Menarche at age 14. First Full-Term at age 19. Maternal grandmother had breast cancer. Maternal aunt had breast cancer. Maternal aunt had breast cancer. Risk Values: Jaci 5 year model risk: 0.8%. NCI Lifetime model risk: 7.4%. Prior Study Comparison: 10/30/2019 Bilateral Screening Mammogram, [facility]. 08/17/2022 Bilateral MG 3D screening mammo w/cad, [facility]. 11/03/2023 Bilateral MG 3D screening mammo w/cad, [facility]. Tissue Density: There are scattered areas of fibroglandular density. Findings: Analyzed By CAD. Right breast: There is no suspicious group of microcalcifications or new suspicious mass. Left breast: There is no suspicious group of microcalcifications or new suspicious mass. Overall Assessment: Negative, BI-RAD 1 Management: Screening Mammogram of both breasts in [address] [facility] will attempt to contact patient to return for supplemental views and ultrasound if indicated. Patient should continue monthly self-breast exams. A clinical breast exam by your physician is recommended on an annual basis. This exam should not preclude additional follow-up of suspicious palpable abnormalities. Note on Jaci scores and lifetime risk: 1. A Jaci score greater than 3% is considered moderate risk. If this is the case, consider specialist referral to assess eligibility for a risk reducing agent. 2. If overall lifetime risk for the development of breast cancer is 20% or higher, the patient may qualify for future screening with alternating mammogram and breast MRI. [facility], , 11/14/2024 7:12 AM. Electronically signed and approved by: Karel Brown DO
== END | disposition home or self-care (01) ==
LOC: RADMAMWWP 14:35
PROVIDERS: ATTEND Internal Medicine
DX: Z12.31 Encounter for screening mammogram for malignant neoplasm of breast (principal); Z80.3 Family history of malignant neoplasm of breast; R92.323 Mammographic fibroglandular density, bilateral breasts
CPT/HCPCS: 77067

== ENCOUNTER 2025-05-22 18:06 | Emergency (ER) | payer MEDICARE ==
[2025-05-22] MEDS: traMADol 50 MG TAB PO STA (19:01)
[2025-05-22] MEDS: LIDOCAINE 4% PATCH TOPICAL ONE (19:02)
[2025-05-22] MEDS: KETOROLAC 15 MG/ML 1 ML VIAL IM STA (19:02)
--- NOTE | 2025-05-22 20:20 | ED ---
General Adult HPI - General Chief complaint: Neck Pain/Injury Stated complaint: Neck pain, Shoulder pain Time Seen by Provider: 05/22/25 18:25 Source: patient Mode of arrival: ambulatory Limitations: no limitations - History of Present Illness Initial comments: Patient is a 49-year-old female presenting today for atraumatic right-sided neck pain. Describes as sharp and spasming. Woke up with the pain this morning. She denies any recent injuries. Does state that she does often lift heavy weights. She denies recent neck manipulation, spinal injections or surgeries. Denies fevers or chills. States pain when she turns her head to the right pain worsens and radiates towards top of her right shoulder. Denies associated numbness or weakness. Denies dizziness, headache, slurred speech or additional strokelike symptoms. She denies chest pain or shortness of breath, abdominal pain, nausea or vomiting. She tried cool compresses, Biofreeze and Tylenol today without relief. - Related Data Home Medications Medication Instructions Recorded Confirmed Levothyroxine Sodium [Synthroid] 125 mcg PO DAILY 03/23/16 01/21/20 valACYclovir HCL [Valacyclovir] 1,000 mg PO DAILY 12/23/17 01/21/20 Phentermine HCl [Adipex-P] 37.5 mg PO DAILY 12/20/19 01/21/20 Biotin 5 mg PO DAILY 01/21/20 01/21/20 Ergocalciferol (Vitamin D2) 1,200 mcg PO DAILY 01/21/20 01/21/20 [Vitamin D2] Previous Rx's Medication Instructions Recorded Erythromycin Ophth Oint [Romycin 1 applic LEFT EYE QID #3.5 gram 12/27/21 Ophth Oint] Amoxic-Pot Clav 875-125Mg 1 tab PO Q12HR #20 tab 09/02/24 [Augmentin 875-125] Fluconazole 150 mg PO ONCE #1 tab 09/02/24 HYDROcodone/APAP 5-325MG [Willows 5] 1 each PO Q6HR PRN #12 tab 09/02/24 tiZANidine HCL [Zanaflex] 2 mg PO Q8HR PRN 3 Days #10 capsule 05/22/25 Allergies Allergy/AdvReac Type Severity Reaction Status Date / Time No Known Allergies Allergy Verified 05/22/25 18:10 Review of Systems ROS Statement: Those systems with pertinent positive or pertinent negative responses have been documented in the HPI. ROS Other: All systems not noted in ROS Statement are negative. Past Medical History Past Medical History: Thyroid Disorder Additional Past Medical History / Comment(s): Back pain, History of Any Multi-Drug Resistant Organisms: None Reported Past Surgical History: Back Surgery, Orthopedic Surgery, Tonsillectomy, Tubal Ligation Additional Past Surgical History / Comment(s): Lumbar fusion L4-5; Bilateral ankle surgery Past Anesthesia/Blood Transfusion Reactions: Previous Problems w/ Anesthesia Additional Past Anesthesia/Blood Transfusion Reaction / Comment(s): PT STATES THAT SHE WOKE UP DURING HER TUBAL LIGATION Past Psychological History: No Psychological Hx Reported Smoking Status: Never smoker Past Alcohol Use History: None Reported Past Drug Use History: None Reported, Opiates - Past Family History Mother Family Medical History: No Reported History General Exam - General Exam Comments Initial Comments: PE: CONSTITUTIONAL: No apparent distress, well appearing SKIN: Warm, dry, no jaundice, hives or petechiae EYES: Pupils are equally round, extraocular movements intact without nystagmus, clear conjunctiva, non-icteric sclera HENT: Normocephalic, atraumatic, moist mucus membranes, oropharynx clear without exudates NECK: , Full range of motion, normal appearance, no midline spinal TTP, no pa lable masses, no carotid bruits, right sided palpable spasm, and tenderness along levator scapulae PULMONARY: Clear to auscultation without wheezes, rhonchi, or rales, normal excursion, no accessory muscle use and no stridor CARDIOVASCULAR: Regular rate, rhythm, normal S1 and S2. No appreciated murmurs, rubs or gallops. Strong radial pulses with intact distal perfusion. MUSCULOSKELETAL: Extremities have no gross deformity, no edema, redness, or swelling. NEUROLOGIC:_a/o x 3, GCS 15, normal mentation and speech. Moves all extremities x 4 without motor or sensory deficit. PSYCHIATRIC:_normal mood and affect, thought process is clear and linear Limitations: no limitations Course Vital Signs 05/22/25 05/22/25 18:06 20:20 Temperature 98.0 F 98.1 F Pulse Rate 107 H 82 Respiratory 16 18 Rate Blood Pressure 133/86 104/71 O2 Sat by Pulse 98 97 Oximetry Medical Decision Making - Medical Decision Making Was pt. sent in by a medical professional or institution ([facility], [facility], urgent care, hospital, or fci...) When possible be specific @ -No Did you speak to anyone other than the patient for history (EMS, parent, family, police, friend...)? What history was obtained from this source @ -No Did you review nursing and triage notes (agree or disagree)? Why? @ -I reviewed nursing and triage notes Were old charts reviewed (outside hosp., previous admission, EMS record, old EKG, old radiological studies, urgent care reports/EKG's, fci records)? Report findings @ -Medical records reviewed Differential Diagnosis (chest pain, altered mental status, abdominal pain women, abdominal pain men, vaginal bleeding, weakness, fever, dyspnea, syncope, headache, dizziness, GI bleed, back pain, seizure, CVA, palpatations, mental health, musculoskeletal)? Differential diagnosis remains broad however top considerations include: Cervical radiculopathy, Muscular strain, contusion, ligament sprain, fracture, arthritis, , muscle spasm, nerve compression, DVT, arterial occlusion, herpes zoster, dissection -of note pt has no neurologic symptoms, pain is reproducible, palpable muscle spasm on exam.... This is not meant to be in all inclusive list EKG interpreted by me (3pts min.). @ -As above X-rays interpreted by me (1pt min.). @ -None done CT interpreted by me (1pt min.). @ -None done U/S interpreted by me (1pt. min.). @ -None done What testing was considered but not performed or refused? (CT, X-rays, U/S, labs)? Why? @ -CT cspine was considered however pt has no recent injury or red flag symptoms, did not feel was indicated at this point What meds were considered but not given or refused? Why? @ -None Did you discuss the management of the patient with other professionals (professionals i.e. [facility], [facility]PER[facility], lab, RT, psych nurse, rn social services, contact center consultant, teacher, logistics officer, pillowcase cutter)? Give summary @ -No Was smoking cessation discussed for >3mins.? @ -No Was critical care preformed (if so, how long)? @ -No Were there social determinants of health that impacted care today? How? (Homelessness, low income, unemployed, alcoholism, drug addiction, transportation, low edu. Level, literacy, decrease access to med. care, retirement, rehab)? @ -No Was there de-escalation of care discussed even if they declined (Discuss DNR or withdrawal of care, Hospice)? @ -No What co-morbidities impacted this encounter? (DM, HTN, Smoking, COPD, CAD, Cancer, CVA, ARF, Chemo, Hep., AIDS, mental health diagnosis, sleep apnea, morbid obesity)? @ -None Was patient admitted / discharged? Hospital course, mention meds given and route, prescriptions, significant lab abnormalities, going to OR and other pertinent info. @Discharged-this is a pleasant 49-year-old female presenting today for right- sided neck pain x 1 day. Atraumatic. Patient is mildly tachycardic on arrival otherwise vital signs within acceptable limits she is afebrile. Exam significant for palpable muscle spasm to the right of the neck without midline spinal tenderness, no palpable masses, adenopathy or carotid bruits. Discussed with patient plan for pain medications and reassessment she was agreeable. After receiving Toradol, Zanaflex and lidocaine patch as well as applying a warm compress patient endorsed improvement in pain with increased mobility. Patient be discharged home with prescription for Zanaflex and was instructed to apply warm compresses to the area, and use Tylenol and ibuprofen as needed. Additionally we discussed signs and symptoms to monitor for warranting return to the ER such as fevers, failure of pain to continue to improve, neurologic symptoms. Patient comfortable discharge at this point. In my medical judgment there is currently no evidence of an immediate life- threatening or surgical condition. Discharge is therefore indicated at this time. Discharge treatment instructions, follow up instructions, and appropriate [facility] department return precautions were discussed with the patient and/or medical decision maker. Patient and/or medical decision maker expressed understanding of and agreed with the treatment plan, follow up instructions, and emergency department return precaution. All patient's and/or medical decision maker's questions were answered. The patient was advised that a small risk still exists that a serious condition could develop and was therefore instructed to return to the ED for any changes in symptoms, persistent symptoms, inability to obtain proper follow-up or for any further concerns. Patient received verbal and written instructions for this condition. Undiagnosed new problem with uncertain prognosis? @ -No Drug Therapy requiring intensive monitoring for toxicity (Heparin, Nitro, Insulin, Cardizem)? @ -No Were any procedures done? @ -No Diagnosis/symptom? @Cervical radiculopathy Acute, or Chronic, or Acute on Chronic? @Acute Uncomplicated (without systemic symptoms) or Complicated (systemic symptoms)? Uncomplicated Side effects of treatment? @ -No Exacerbation, Progression, or Severe Exacerbation? @ -No Poses a threat to life or bodily function? How? (Chest pain, USA, MD, pneumonia, PE, COPD, DKA, ARF, appy, cholecystitis, CVA, Diverticulitis, Homicidal, Suicidal, threat to staff... and all critical care pts) @ -No Disposition Clinical Impression: Cervical radiculopathy Disposition: HOME SELF-CARE Instructions (If sedation given, give patient instructions): Cervical Strain (ED) Additional Instructions: Every disease is a spectrum and a small chance still exists that a serious condition could develop, for this reason, please monitor yourself closely for new, changing or worsening symptoms, symptoms that do not resolve after 72 hours, severe or uncontrolled pain, redness, swelling, difficulty in breathing, strokelike symptoms such as severe dizziness, changes in vision, facial droop, slurred speech, severe headache, numbness or weakness of an extremity, chest pain or difficulty in breathing, fever, inability to tolerate/keep down fluids or your medications, inability to follow up with outpatient providers as instructed and should you experience these symptoms or should you have any further concerns for your wellbeing please return to the ED or call 911 immediately. Your pain can be treated with ibuprofen and acetaminophen. You can take up to 400-600 mg of ibuprofen (Advil, Motrin) 3 times daily (every 8 hours) but can also use lower doses if this relieves your pain. Some people prefer naproxen (Aleve, Naprosyn) which can be taken in doses of 500 mg up to twice a day. Do not take both of these medicines together, and do not combine either with ketorolac (Toradol), meloxicam (Mobic), or indomethacin (Tivorbex). Some people can develop stomach discomfort with higher doses of either ibuprofen or naproxen, if this develops decrease your dose or stop taking it. If you need to take this dose daily for more than a week, please schedule an appointment for re-evaluation with your PCP. Please take these medications with food. You can take up to 1000 mg of acetaminophen (Tylenol) every 6 hours. Be careful as this is included in some medicines like Nyquil, Willows, Percocet, Vicodin, STANBACK, Goody's Powders, and Excedrin. You can also use lidocaine patches for topical pain. You can purchase 4% patches over the counter at most drug stores. These can be helpful for pain from your muscles or bones. Apply warm compresses 20 minutes every 3-4 hours as needed for pain. PLEASE call your primary care physician as soon as possible to arrange / discuss plan for followup appointment. Appointment in the next 1-3 days is strongly encouraged if possible. PLEASE let us know here before you leave if there is anything further we can do to be of any assistance. Take care and feel Better! Prescriptions: tiZANidine HCL [Zanaflex] 2 mg PO Q8HR PRN 3 Days #10 capsule PRN Reason: Muscle Spasm Is patient prescribed a controlled substance at d/c from ED?: No Referrals: Karine Parker MD [Primary Care Provider] - 1-2 days
[2025-05-22 20:22] VITALS: BP 104/71; PULSE 82; RESP 18; TEMP 98.1
== END 2025-05-22 20:48 | disposition home or self-care (01) ==
LOC: EC 18:06
DX: M54.12 Radiculopathy, cervical region (principal)
CPT/HCPCS: 99283; 96372; J1885